=== PATIENT | female | born 1995 | race Two or more races ===

== ENCOUNTER 2020-10-15 00:18 | Emergency (ER) | payer BC, MEDICAID ==
[~2020-10-15] VITALS: Ht 172.7 cm; Wt 123.8 kg
--- NOTE | 2020-10-15 00:20 | NUR ---
PT IN RM 04B, PT UNABLE TO ANSWER QUESTIONS RESPONDS TO PAIN ONLY. MONITOR SHOWS NSR, PO2 ON RO[place] =94%
[2020-10-15 01:03] LABS: BILIRUBIN,TOTAL 0.2 mg/dL (0.2-1.0); CREATININE 0.9 mg/dL (0.6-1.3); TOTAL PROTEIN, SERUM 8.5 g/dL (6.4-8.2)
[2020-10-15 01:05] LABS: BASOPHILS % (AUTO) 0.4 % (0.0-2.0); EOSINOPHILS # (AUTO) 0.3 K/uL (0.0-0.7); EOSINOPHILS % (AUTO) 2.9 % (0.0-7.0); LYMPHOCYTES # (AUTO) 4.4 K/uL (20.0-40.0); LYMPHOCYTES % (AUTO) 37.4 % (20.5-51.5); MEAN CORPUSCULAR HEMOGLOBIN 27.2 uug (24.7-32.8); MEAN CORPUSCULAR HGB CONC 33 g/dL (32.3-35.6); MEAN CORPUSCULAR VOLUME 81.5 fL (75.5-95.3); MONOCYTES # (AUTO) 0.9 K/uL (2.0-10.0); MONOCYTES % (AUTO) 7.4 % (0.0-11.0); NEUTROPHILS % (AUTO) 51.9 % (38.5-71.5); PLATELET COUNT (AUTO) 416 K/uL (179-408); RED BLOOD CELL COUNT(AUTO) 4.78 MIL/uL (3.63-4.92); WHITE BLOOD COUNT (AUTO) 11.7 K/uL (3.8-11.8)
--- NOTE | 2020-10-15 04:47 | NUR ---
PT AWAKE, REQUESTED PORTABLE PHONE TO CALL FAMILY, HAS NO COMPLAINTS.
--- NOTE | 2020-10-15 06:13 | NUR ---
PT A/O X4 ACI GIVEN, PT AMBULATERD W/O DIFF , TOOK ALL BELONGINGS.
--- NOTE | 2020-10-15 06:16 | NUR ---
PT DID NOT GET A SALINE LOCK, PT REFUSED.
[2020-10-15 06:17] VITALS: BP 128/68
== END 2020-10-15 06:10 | disposition home or self-care (01) ==
LOC: ER 00:21
DX: F10.129 Alcohol abuse with intoxication, unspecified (principal); Y90.8 Blood alcohol level of 240 mg/100 ml or more; R40.2422 Glasgow coma scale score 9-12, at arrival to emergency department; R11.10 Vomiting, unspecified
CPT/HCPCS: 36415; 85025; A4663; G0480